=== PATIENT | male | born 1990 | race American Indian/Alaskan Native ===

== ENCOUNTER 2023-08-19 22:06 | Inpatient (IN) | payer SELFPAY ==
[~2023-08-19] VITALS: Ht 185.4 cm; Wt 82.0 kg
[2023-08-19 22:59] LABS: BASOPHILS % 0.7 % (0.0-2.0); EOSINOPHILS % 5.9 % (0.0-5.0); HEMATOCRIT. 36.1 % (42.0-52.0); HEMOGLOBIN. 12.2 g/dL (14.0-18.0); LYMPHOCYTES % 30.4 % (20.0-50.0); MEAN CORPUSCULAR HEMOGLOBIN 29.4 pg (28.0-32.0); MEAN CORPUSCULAR HGB CONC 33.6 g/dL (31.0-37.0); MEAN CORPUSCULAR VOLUME 87.5 fL (80.0-94.0); MEAN PLATELET VOLUME 7.1 fl (7.4-10.4); MONOCYTES % 10.1 % (2.0-8.0); NEUTROPHILS % 52.9 % (40.0-76.0); PLATELET 299 x1000/uL (130-400); RED BLOOD CELL COUNT 4.13 mill/uL (4.7-6.1); RED CELL DISTRIBUTION WIDTH 13.2 % (11.6-14.6); WHITE BLOOD COUNT 5.1 x1000/uL (4.5-11.0)
[2023-08-19] MEDS: VANCOMYCIN 1000MG/250ML 250 ML IV NR (23:00)
[2023-08-19] MEDS ORDERED: VANCOMYCIN 1000MG/250ML 250 ML IV SCH (23:00)
[2023-08-19] MEDS ORDERED: VANCOMYCIN 500 MG in DEXT 5% WATER 100 ML IV SCH (23:00)
[2023-08-19 23:01] LABS: CHLORIDE 107 mEq/L (98-107); POTASSIUM 4.3 mEq/L (3.5-5.1); SODIUM 142 mEq/L (136-145)
[2023-08-19 23:02] LABS: CALCIUM 9.3 mg/dL (8.7-10.4); CARBON DIOXIDE 30 mEq/L (21-32)
[2023-08-19 23:07] LABS: CREATININE 0.9 mg/dL (0.6-1.3); GLUCOSE 87 mg/dL (70-105); UREA NITROGEN BLOOD 13 mg/dL (9-23)
[2023-08-20] MEDS: VANCOMYCIN 1GM/200ML PMX (BAXTER) IV SCH (01:24)
[2023-08-20] MEDS: PIPERACILLIN/TAZO 3.375G/50ML 50 ML IV SCH (11:26)
[2023-08-20] MEDS: VANCOMYCIN 1G PREMIX 200 ML IV NR (11:50)
[2023-08-20] MEDS ORDERED: HYDROCODONE/ACETAMINOPHEN 5/325MG TABLET PO PRN ×2 (12:15)
[2023-08-20] MEDS ORDERED: ACETAMINOPHEN 325MG TABLET PO PRN (12:15)
[2023-08-20] MEDS ORDERED: ONDANSETRON HCL 4MG/2ML INJ IV PRN (12:15)
[2023-08-21 07:13] LABS: CHLORIDE 107 mEq/L (98-107); SODIUM 141 mEq/L (136-145)
[2023-08-21 07:14] LABS: CALCIUM 8.8 mg/dL (8.7-10.4); CARBON DIOXIDE 29 mEq/L (21-32)
[2023-08-21 07:19] LABS: CREATININE 1.1 mg/dL (0.6-1.3); GLUCOSE 111 mg/dL (70-105); UREA NITROGEN BLOOD 14 mg/dL (9-23)
[2023-08-21 07:33] LABS: EOSINOPHILS % 8.9 % (0.0-5.0); HEMOGLOBIN. 11.3 g/dL (14.0-18.0); LYMPHOCYTES % 41.8 % (20.0-50.0); MEAN CORPUSCULAR HEMOGLOBIN 28.9 pg (28.0-32.0); MEAN CORPUSCULAR HGB CONC 33.3 g/dL (31.0-37.0); MEAN CORPUSCULAR VOLUME 86.6 fL (80.0-94.0); MEAN PLATELET VOLUME 7.5 fl (7.4-10.4); MONOCYTES % 9.1 % (2.0-8.0); NEUTROPHILS % 39.2 % (40.0-76.0); PLATELET 277 x1000/uL (130-400); RED BLOOD CELL COUNT 3.93 mill/uL (4.7-6.1); WHITE BLOOD COUNT 3.7 x1000/uL (4.5-11.0)
[2023-08-21 09:57] LABS: CARBON DIOXIDE 30 mEq/L (21-32); CHLORIDE 106 mEq/L (98-107); POTASSIUM 4.2 mEq/L (3.5-5.1); SODIUM 140 mEq/L (136-145)
[2023-08-21 09:58] LABS: CALCIUM 8.9 mg/dL (8.7-10.4)
[2023-08-21 10:03] LABS: GLUCOSE 92 mg/dL (70-105); UREA NITROGEN BLOOD 13 mg/dL (9-23)
[2023-08-21 11:00] VITALS: BP 105/56; PULSE 72; RESP 20; TEMP 97.2
[2023-08-21] MEDS ORDERED: NALOXONE HCL 0.4MG/ML VIAL IV PRN (11:45)
[2023-08-21] MEDS ORDERED: SULF1TAB48 MT (13:04)
[2023-08-21] MEDS ORDERED: AMOX1TAB16 MT (13:04)
[2023-08-21 16:00] VITALS: BP 112/62; PULSE 87; RESP 20; TEMP 97.3
[2023-08-21 17:58] VITALS: BP 113/69; PULSE 87; TEMP 97.3; O2SAT 99
== END 2023-08-21 18:43 | disposition home or self-care (01) | DRG 383 ==
LOC: ER 22:21 → 5WST 23:43 → 6WST 08-21 11:30
PROVIDERS: ADMIT Internal Medicine; ATTEND Internal Medicine
DX: L03.213 Periorbital cellulitis (principal); L03.211 Cellulitis of face
CPT/HCPCS: 36415; 80048; 80202; 85025; 96367; 99284; J2543; J3370; J7060

== ENCOUNTER 2023-11-28 20:34 | Emergency (ER) | payer MEDICAID, OTHER ==
[~2023-11-28] VITALS: Ht 182.9 cm; Wt 88.0 kg
[~2023-11-28 20:34] MED LIST: AMOX1TAB16 MT; SULF1TAB48 MT
[2023-11-28 20:42] VITALS: O2SAT 100
[2023-11-28 21:51] LABS: BASOPHILS % 0.8 % (0.0-2.0); CLARITY URINE CLEAR (CLEAR); COLOR URINE YELLOW (YELLOW); EOSINOPHILS % 7.7 % (0.0-5.0); GLUCOSE URINE NEGATIVE (NEGATIVE); HEMATOCRIT. 42.3 % (42.0-52.0); HEMOGLOBIN. 14.4 g/dL (14.0-18.0); KETONES URINE NEGATIVE (NEGATIVE); LEUKOCYTE ESTERASE URINE NEGATIVE (NEGATIVE); LYMPHOCYTES % 28.8 % (20.0-50.0); MEAN CORPUSCULAR HEMOGLOBIN 29.7 pg (28.0-32.0); MEAN CORPUSCULAR HGB CONC 33.9 g/dL (31.0-37.0); MEAN CORPUSCULAR VOLUME 87.5 fL (80.0-94.0); MEAN PLATELET VOLUME 7.6 fl (7.4-10.4); MONOCYTES % 8.5 % (2.0-8.0); NEUTROPHILS % 54.2 % (40.0-76.0); NITRITE URINE NEGATIVE (NEGATIVE); OCCULT BLOOD URINE NEGATIVE (NEGATIVE); PH URINE 5.5 (4.5-8.0); PLATELET 312 x1000/uL (130-400); PROTEIN URINE 1+ (NEGATIVE); RED BLOOD CELL COUNT 4.84 mill/uL (4.7-6.1); SPECIFIC GRAVITY URINE 1.031 (1.005-1.030); WHITE BLOOD COUNT 5.6 x1000/uL (4.5-11.0)
[2023-11-28 21:58] LABS: *AMPHETAMINES SCREEN URINE PRESUMPTIVE POSITIVE (NEGATIVE); *BARBITURATES SCREEN URINE NEGATIVE (NEGATIVE); *BENZODIAZEPINES SCREEN URINE NEGATIVE (NEGATIVE); *COCAINE SCREEN URINE NEGATIVE (NEGATIVE); CANNABINOID URINE SCREEN NEGATIVE (NEGATIVE); ECSTASY MDMA SCREEN URINE CONF.TEST INDICATED (NEGATIVE); METHADONE URINE SCREEN NEGATIVE (NEGATIVE); OPIATES URINE SCREEN NEGATIVE (NEGATIVE); PHENCYCLIDINE URINE SCREEN NEGATIVE (NEGATIVE)
[2023-11-28 22:01] LABS: CARBON DIOXIDE 29 mEq/L (21-32); CHLORIDE 103 mEq/L (98-107); POTASSIUM 3.7 mEq/L (3.5-5.1); SODIUM 139 mEq/L (136-145)
[2023-11-28 22:05] LABS: BACTERIA URINE 1+; RBC URINE NONE SEEN /hpf (0-2); SQUAMOUS EPITHELIAL CELL URINE FEW /lpf (RARE/1+); WBC URINE 0-2 /hpf (0-2)
[2023-11-28 22:07] LABS: GLUCOSE 87 mg/dL (70-105); UREA NITROGEN BLOOD 40 mg/dL (9-23)
[2023-11-28 22:08] LABS: ACETAMINOPHEN < 2 ug/mL (10-30); CREATININE 1.4 mg/dL (0.6-1.3); ETHANOL BLOOD < 10 mg/dL (<10)
[2023-11-29] MEDS: OLANZAPINE 5MG TABLET PO SCH (21:00)
[2023-11-30 11:29] VITALS: BP 104/72; PULSE 80; RESP 16; TEMP 36.66960; O2SAT 99
== END 2023-11-30 11:30 ==
LOC: ER 20:34
DX: R44.0 Auditory hallucinations (principal); F17.200 Nicotine dependence, unspecified, uncomplicated; F15.10 Other stimulant abuse, uncomplicated; F31.9 Bipolar disorder, unspecified; Z86.59 Personal history of other mental and behavioral disorders; Z20.822 Contact with and (suspected) exposure to COVID-19
CPT/HCPCS: 36415; 80048; 80305; 80307; 80320; 80329; 81003; 85025; 87426; 99285; G0480